=== PATIENT | female | born 1950 | race Caucasian/White ===

== ENCOUNTER → 2019-09-19 | Outpatient (CLI) | payer OTHER ==
--- NOTE | 2019-09-19 11:53 | RAD ---
Examination: VENOUS LOWER EXTREMITY RIGHT History: Thrombophlebitis. Comparison/Correlation: None FINDINGS: Right lower extremity duplex venous ultrasound exam was performed. Grayscale, color Doppler, and spectral Doppler imaging was performed. Compression and augmentation was performed. The right common femoral vein, superficial femoral vein, and popliteal vein are normal with no evidence of deep venous thrombus. Normal compressibility and augmentation is evident. Visualized calf veins are unremarkable. Diffuse occlusive thrombus involvement of the right great saphenous vein is present. IMPRESSION: Diffuse occlusive thrombus involvement of the great saphenous vein throughout its entire length. No evidence of deep venous thrombus involving the right lower extremity. Electronically signed by: Tawanda Baldwin MD (09/19/2019 11:51 AM) [facility]
== END | disposition home or self-care (01) ==
LOC: US 08:16
PROVIDERS: ATTEND Physician Assistant Medical
DX: I82.491 Acute embolism and thrombosis of other specified deep vein of right lower extremity (principal)
CPT/HCPCS: 93971

== ENCOUNTER → 2022-01-11 | Outpatient (CLI) | payer MEDICARE ==
--- NOTE | 2022-01-11 16:53 | CARD ---
MR#: [id number] Date of Study: 01/11/2022 Ordering Physician: WOLFGANG STRATTON, Referring Physician: WOLFGANG STRATTON Tech: José Miguel Medina [facility] APPROVED REPORT EXAM: Two-dimensional and M-mode echocardiogram with Doppler and color Doppler. Other Information Quality : GoodHR: 138bpm Rhythm : APC's INDICATION Hypertension/HCVD RISK FACTORS Hypertension Obesity 2D DIMENSIONS Left Atrium(2D)3.8 (1.6-4.0cm)IVSd0.9 (0.7-1.1cm) Aortic Root(2D)3.0 (2.0-3.7cm)LVDd4.5 (3.9-5.9cm) LVOT Diameter2.0 (1.8-2.4cm)PWd0.9 (0.7-1.1cm) LA Ergldi03 (18-58mL)LVDs2.9 (2.5-4.0cm) FS (%) 24.7 %SV45.7 ml Aortic Valve AoV Peak Emory.168.1cm/sAoV VTI28.3cm AO Peak GR.11.3mmHgLVOT Peak Emory.82.8cm/s LVOT VTI 15.73cmAO Mean GR.6mmHg EVELIA (VMAX)1.75vi1TXA (VTI)1.81cm2 Mitral Valve MV E Aledsbws04.7cm/sMV E Peak Gr.5mmHg MV DECEL [id number] A Elzgboaz25.5cm/s MV E Mean Gr.2mmHgE/A Ratio0.7 Pulmonary Valve PV Peak Vkzuzfzh908.1cm/sPV Peak Grad.5mmHg Tricuspid Valve TR P. Oygbtcqv505tr/sTR Peak Gr.25mmHg Pulmonary Vein S1 Jtcbzuim13.9cm/sD2 Tiraprut34.9cm/s LEFT VENTRICLE The left ventricle is normal size. There is normal left ventricular wall thickness. The left ventricu lar systolic function is normal. The ejection fraction is 60%. There is normal LV segmental wall tay on. Transmitral Doppler flow pattern is Grade I-abnormal relaxation pattern. No left ventricle thromb us noted on this study. There is no ventricular septal defect visualized. There is no left ventricula r aneurysm. There is no mass noted in the left ventricle. RIGHT VENTRICLE The right ventricle is normal size. There is normal right ventricular wall thickness. The right ventr icular systolic function is normal. ATRIA The left atrium size is normal. The right atrium size is normal. The interatrial septum is intact wit h no evidence for an atrial septal defect or patent foramen ovale as noted on 2-D or Doppler imaging. AORTIC VALVE The aortic valve is mildly sclerotic. The aortic valve is trileaflet. Doppler and Color Flow revealed no significant aortic regurgitation. There is no significant aortic valvular stenosis. There is no a ortic valvular vegetation. MITRAL VALVE The mitral valve is normal in structure and function. There is no evidence of mitral valve prolapse. There is no mitral valve stenosis. Doppler and Color-flow revealed trace mitral regurgitation. TRICUSPID VALVE The tricuspid valve is normal in structure and function. Doppler and Color Flow revealed trace tricus pid regurgitation. There is no tricuspid valve prolapse or vegetation. There is no tricuspid valve st enosis. PULMONIC VALVE The pulmonary valve is normal in structure and function. Doppler and Color Flow revealed no pulmonic valvular regurgitation. There is no pulmonic valvular stenosis. GREAT VESSELS The aortic root is normal in size. The ascending aorta is normal in size. The pulmonary artery is nor mal. The IVC is normal in size and collapses >50% with inspiration. PERICARDIAL EFFUSION There is no pleural effusion. There is no evidence of significant pericardial effusion. Critical Notification Critical Value: No <Conclusion> The left ventricular systolic function is normal. The ejection fraction is 60%. There is normal LV segmental wall motion. Transmitral Doppler flow pattern is Grade I-abnormal relaxation pattern. Trace mitral regurgitation. Trace tricuspid regurgitation. There is no evidence of significant pericardial effusion. Signed by : Florentin Oneill, Electronically Approved : 01/11/2022 16:52:41
== END ==
LOC: ECHO 14:25
PROVIDERS: ATTEND Physician Assistant Medical
DX: I35.8 Other nonrheumatic aortic valve disorders (principal); I45.9 Conduction disorder, unspecified
CPT/HCPCS: 93306